=== PATIENT | female | born 1985 | race Two or more races ===

== ENCOUNTER 2020-03-06 05:25 | Inpatient (IN) | payer OTHER ==
--- NOTE | 2020-03-04 12:12 | NUR ---
[employer] Translation services used to obtained medical history with top executive Zayra ID# [id number].
[2020-03-06] VITALS (16 sets, daily range): BP systolic 105–138; BP diastolic 65–86
[~2020-03-06] VITALS: Ht 165.1 cm; Wt 81.6 kg
[2020-03-06] MEDS ORDERED: Rocuronium Bromide 50mg/5ml Inj IV ONE (06:36)
[2020-03-06] MEDS ORDERED: Meperidine 25mg/0.5ml Inj (FOR RIGORS ONLY) IV PRN (06:45)
[2020-03-06] MEDS ORDERED: LORazepam Inj 2mg/ml 1ml IV PRN (06:45)
[2020-03-06] MEDS ORDERED: HYDROcodone/Acetamin 7.5/325 tab ORAL PRN ×3 (06:45→07:45)
[2020-03-06] MEDS ORDERED: DiphenhydrAMINE 50mg/ml Inj IVP PRN (06:45)
[2020-03-06] MEDS ORDERED: LR 1000ml 1,000 ML IVLG SCH (06:45)
[2020-03-06] MEDS ORDERED: Ketorolac 30mg Inj IV PRN ×2 (06:45)
[2020-03-06] MEDS ORDERED: Atropine Sulfate 0.4mg/ml inj IVP PRN (06:45)
[2020-03-06] MEDS ORDERED: Midazolam 2mg/2ml Inj IVP PRN (06:45)
[2020-03-06] MEDS ORDERED: Hydromorphone 0.5mg/0.5ml inj IVP PRN (06:45)
[2020-03-06] MEDS ORDERED: Labetalol 5mg/ml 20ml vial IV PRN (06:45)
[2020-03-06] MEDS ORDERED: Acetaminophen (Non formulary) 100 ML IV ONE (06:45)
[2020-03-06] MEDS ORDERED: fentaNYL 100 mcg/2 mL IV PRN (06:45)
[2020-03-06] MEDS ORDERED: HYDROcodone/Acetamin 5/325 tab ORAL PRN ×2 (06:45→07:45)
[2020-03-06] MEDS ORDERED: oxyCODONE HCL/Acetaminophen 5/325mg ORAL PRN (06:45)
[2020-03-06] MEDS ORDERED: Metoclopramide 10mg/2ml Inj IVP PRN ×2 (06:45→07:45)
--- NOTE | 2020-03-06 06:47 | Anethesia Preoperative Eval ---
Anesthesia Pre-op PMH/ROS General Date of Evaluation: Mar 06, 2020 Time of Evaluation: 07:19 Anesthesiologist: Jerzy ASA Score: ASA 2 Mallampati Score Class I : Soft palate, uvula, fauces, pillars visible Class II: Soft palate, uvula, fauces visible Class III: Soft palate, base of uvula visible Class IV: Only hard plate visible Mallampati Classification: Class I Surgeon: Daysi Diagnosis: Neck Pain Surgical Procedure: ADR C5-6, ACDF C6-7 Anesthesia History: none Family History: no anesthesia problems Allergies: Coded Allergies: No Known Allergies (Unverified , 03/06/20) Medications: see eMAR Patient NPO?: Yes Past Medical History Other: obesity - BMI 31 PSxH Narrative: C/S X2 Anesthesia Pre-op Phys. Exam Physician Exam Vital Signs Date Time Temp Pulse Resp B/P (MAP) Pulse Ox O2 Delivery O2 Flow Rate FiO2 03/06/20 06:13 Room Air 03/06/20 07:38 97.4 75 20 138/69 (92) 96 Last Vital Signs Date Time Temp Pulse Resp B/P (MAP) Pulse Ox O2 Delivery O2 Flow Rate FiO2 03/06/20 06:13 Room Air Constitutional: NAD Neurologic: CN 2-12 intact Cardiovascular: RRR Respiratory: CTA Gastrointestinal: S/NT/ND Airway Exam Mallampati Score: Class I MO: full ROM: limited Teeth: intact Anesthesia Pre-op A/P Labs Urine Test Test 03/06/20 05:50 Urine HCG, Qualitative Negative (NEGATIVE) Risk Assessment & Plan Assessment: ASA 1 Plan: GA, SED,GlideScope Status Change Before Surgery: No Pre-Antibiotics Dru Grams Ancef IV Given Within 1 Hr of Incision: Yes Time Given: 08:01 Aram Bertrand MD Mar 06, 2020 06:47
[2020-03-06] MEDS ORDERED: Vancomycin 1gm vial IVPB ONE (06:57)
[2020-03-06] MEDS ORDERED: Thrombin 5000 units TOPIC ONE (06:58)
[2020-03-06] MEDS ORDERED: Gelfoam Size TOPIC ONE (06:58)
[2020-03-06] MEDS ORDERED: Bacitracin 50000 Units Vial ONE (06:58)
[2020-03-06] MEDS ORDERED: ceFAZolin sod 2 GM in NS 55 ML IVPB ONE (07:00)
[2020-03-06] MEDS ORDERED: propofoL 1,000mg/100ml IV ONE (07:00)
[2020-03-06] MEDS ORDERED: Sterile Water Irrig 1000ml IRRIG ONE (07:00)
[2020-03-06] MEDS ORDERED: Neostigmine 1mg/ml 10ml Inj ONE (07:00)
[2020-03-06] MEDS ORDERED: NS Irrig 1000ml ONE (07:00)
[2020-03-06] MEDS ORDERED: LR 1000ml ONE (07:00)
[2020-03-06] MEDS ORDERED: Lidocaine 1% MPF 10mg/ml 5ml ONE (07:04)
[2020-03-06] MEDS ORDERED: Sodium Chloride 10ml vial INJ ONE (07:04)
[2020-03-06] MEDS ORDERED: fentaNYL 100 mcg/2 mL IV ONE (07:05)
[2020-03-06] MEDS ORDERED: Lidocaine 1% Plain 30 ml INJ ONE (07:05)
[2020-03-06] MEDS ORDERED: Succinylcholine 20mg/ml 10ml vial ONE (07:21)
--- NOTE | 2020-03-06 07:29 | Pre-Procedure Note/Attestation ---
Pre-Procedure Note/Attestation Complete Prior to Procedure Planned Procedure: not applicable Procedure Narrative: Anterior cervical discectomy and fusion of C67 and artificial disc replacement of Cervical 56 Indications for Procedure Pre-Operative Diagnosis: herniation C56 67 Attestation I attest that I discussed the nature of the procedure; its benefits; risks and complications; and alternatives (and the risks and benefits of such alternatives ), prior to the procedure, with the patient (or the patient's legal petroleum products sales representative). I attest that, if there was a reasonable possibility of needing a blood transfusion, the patient (or the patient's legal petroleum products sales representative) was given the [facility] standardized written summary, pursuant to the [place] Blood Safety Act ([place] Health and Safety Code # 1645, as amended). I attest that I re-evaluated the patient just prior to the surgery and that there has been no change in the patient's H&P, except as documented below: Chester Tavarez MD Mar 06, 2020 07:29
--- NOTE | 2020-03-06 07:32 | Brief Operative Note ---
Immediate Post Operative Note Operative Note Chief Complaint: neck pain and radiculopathy Pre-op Diagnosis: herniation C56 67 Procedure: Anterior cervical discectomy and fusion of C67 and artificial disc replacement of Cervical 56 Post-op Diagnosis: same as pre-op Findings: consistent w/pre-op dx studies Surgeon: Daysi Business Transformation Consultant: Jennifer Anesthesiologist: Jerzy Anesthesia: general Specimen: none Complications: none Condition: stable Fluids: IVF Estimated Blood Loss: minimal Drains: none Implant(s) used?: Yes - prodisc c sz 5, nuvasive cervical sz 6 screws 12x3 Chester Tavarez MD Mar 06, 2020 07:32
[2020-03-06] MEDS ORDERED: Naloxone 0.4mg/ml Inj IVP PRN (07:45)
[2020-03-06] MEDS ORDERED: Chloraseptic Spray 20mL Bottle ORAL PRN (07:45)
[2020-03-06] MEDS ORDERED: Morphine Sulfate 4mg/ml Inj (IV USE ONLY) IV PRN ×2 (07:45)
[2020-03-06] MEDS ORDERED: Morphine Sulfate 2mg/ml Inj(IV/IM USE ONLY) IV PRN (07:45)
[2020-03-06] MEDS ORDERED: Milk of Magnesia 30ml Ud ORAL PRN (07:45)
[2020-03-06] MEDS ORDERED: HYDROmorphone 1mg/ml Carpuject IVP PRN (07:45)
[2020-03-06] MEDS ORDERED: Glycopyrrolate 0.2mg/ml 1ml Vial ONE (09:10)
--- NOTE | 2020-03-06 09:36 | Immediate Post-Op Evaluation ---
Immediate Post-Op Evalulation Immediate Post-Op Evalulation Procedure: ADR C5-6, ACDF C6-7 Date of Evaluation: Mar 06, 2020 Time of Evaluation: 10:37 IV Fluids: 1000 LR Blood Products: 0 Estimated Blood Loss: 50 Urinary Output: 250 Blood Pressure Systolic: 109 Blood Pressure Diastolic: 68 Pulse Rate: 75 Respiratory Rate: 16 O2 Sat by Pulse Oximetry: 100 Temperature (Fahrenheit): 97 Pain Score (1-10): 2 Nausea: No Vomiting: No Complications 0 Patient Status: awake, reacts, patent, extubated, none Hydration Status: adequate Dru Grams Ancef IV Given Within 1 Hr of Incision: Yes Time Given: 08:01 Aram Bertrand MD Mar 06, 2020 09:36
--- NOTE | 2020-03-06 12:47 | NUR ---
NURSE NOTES: Patient received from PACU from Renae Madison RN at 1150 s/p ADR C5-6, ACDF C6-7, groggy but arousable d/t anesthesia, no shortness of breath, IV line on left hand patent and intact, dermabond dressing dry and intact on cervical area, on 02 via NC at 3 lpm, on cervical soft easy chew diet, belongings checked with OR/transferring nurse, patient prefers to keep belongings (money included) at bedside (translated by nephew) explained risk and benefits, RX of Missy given to Rajeev (nephew), patient stable at this time. Initial VS: 122/80 RR 18 HR 75 02 100%, will continue to monitor and proceed with plan of care, call light within reach.
[2020-03-06] MEDS: NS w/KCl 20mEq 1000ml 1,000 ML IV SCH ×2 (13:13→23:19)
--- NOTE | 2020-03-06 15:43 | Diagnostic Imaging Report ---
Indication: Reason For Exam: PAIN Technique: Intraoperative fluoroscopy with 5 fluoroscopy stored images obtained by Dr. Tavarez. Total dose: 6.87mGy, Fluoro time 45.7s Comparison: None. Findings: Intraoperative fluoroscopy demonstrates anterior cervical discectomy and fusion at the C5-C6 level. IMPRESSION: Intraoperative fluoroscopy of anterior cervical discectomy and fusion. Please refer to formal operative report for more detail.
[2020-03-06] MEDS: ceFAZolin sod 1 GM in D5W 55 ML IV SCH ×2 (16:15→23:19)
--- NOTE | 2020-03-06 16:18 | NUR ---
CASE MANAGEMENT: INITIAL REVIEW 34YR OLD FEMALE HERE FOR SCHEDULE SURGERY CC:NECK PAIN SI:NECK PAIN AND RADICULOPATHY 97.4 75 20 138/69 96% ON RA IS:ON SURGERY NOW ANTERIOR CERVICAL DISCECTOMY AND FUSION OF C67 AND ARTIFICIAL DISC REPLACEMENT OF CERVICAL 56 \: 3E MED SURG UNIT DCP:HOME WHEN STABLE PLAN: X-RAY C SPINE NEURO CHECKS ENCOURAGE INCENTIVE SPIROMETER
[2020-03-06] MEDS: Docusate 100mg cap ORAL SCH (17:19)
--- NOTE | 2020-03-06 19:34 | NUR ---
NURSE NOTES: Received report from Linda. AAO x 4, on NC 3L. Ethiopian speaking. Denies pain and Dermabond on the neck. IV site intact and running IVF. I/S at bedside and instruction given. SCD on and ambulatory with quality assistant. No acute distress noted. Bed locked, lowest position, alarm on, side rails up, call light within reach. Will continue to monitor.
--- NOTE | 2020-03-06 19:42 | NUR ---
NURSE HAND-OFF: Important Events on Shift:[s/p ADR C5-6, ACDF C6-7] Patient Status: [stable] Diet: [Soft easy chew, post op cervcial diet] Pending Orders: [none] Pending Results/Labs:[none] Pending MD notification:[none] Latest Vital Signs: Temperature 98.2 , Pulse 89 , B/P 110 /70 , Respiratory Rate 20 , O2 SAT 100 , Nasal Cannula, O2 Flow Rate 3 . Vital Sign Comment: [] Latest De [place] Santos Fall Score: 55 Fall Risk: High Risk Safety Measures: Call light , Bed Alarm , Side Rails Side Rails x1, Bed position . Fall Precautions: Report given to [ÁLVARO Singh].
[2020-03-07] VITALS: BP 112/68
[2020-03-07 04:00] VITALS: BP 114/75
--- NOTE | 2020-03-07 07:32 | NUR ---
NURSE HAND-OFF: Important Events on Shift:[s/p anterior cervical discectomy, pain] Patient Status: [stable] Diet: [Soft easy chew, post op cervcial diet] Pending Orders: [N] Pending Results/Labs:[N] Pending MD notification:[N] Latest Vital Signs: Temperature 98.6 , Pulse 87 , B/P 114 /75 , Respiratory Rate 18 , O2 SAT 98 , Room Air, O2 Flow Rate 3 . Vital Sign Comment: Latest De [place] Fall Score: 35 Fall Risk: Medium Risk Safety Measures: Call light Within Reach, Bed Alarm Zone 1, Side Rails Side Rails x2, Bed position Low and Locked. Fall Precautions: Yellow Socks Patient Fall Education Report given to [Elif].
--- NOTE | 2020-03-07 07:53 | General Progress Note ---
Assessment/Plan Assessment/Plan: neck pain and radiculopathy herniation C56 67 Anterior cervical discectomy and fusion of C67 and artificial disc replacement of Cervical 56 PLAN 1. incentive spirometry 2. SCD 3. PT evaluation and therapy 4. Hydration 5. Pain management 6. discharge pending surgical clearance Subjective Allergies: Coded Allergies: No Known Allergies (Unverified , 03/06/20) Subjective stable postop Objective Last 24 Hour Vital Signs Date Time Temp Pulse Resp B/P (MAP) Pulse Ox O2 Delivery O2 Flow Rate FiO2 03/07/20 04:00 98.6 87 18 114/75 (88) 98 03/07/20 00:00 98.6 88 18 112/68 (83) 99 03/06/20 21:00 Room Air 03/06/20 20:09 99.6 92 18 107/67 (80) 100 03/06/20 16:00 98.2 89 20 110/70 (83) 100 03/06/20 13:30 97.9 85 20 126/80 (95) 100 03/06/20 13:00 97.4 84 20 128/86 (100) 100 03/06/20 12:30 97.4 84 20 128/86 (100) 100 03/06/20 12:15 97.3 75 18 122/80 (94) 100 03/06/20 11:45 97.2 72 15 129/80 100 Nasal Cannula 3 03/06/20 11:30 71 15 128/82 100 Nasal Cannula 3 03/06/20 11:27 97.2 03/06/20 11:15 68 14 120/74 100 Nasal Cannula 3 03/06/20 11:05 73 14 118/71 100 Nasal Cannula 3 03/06/20 10:50 75 16 119/73 100 Nasal Cannula 3 03/06/20 10:40 70 17 114/73 100 Simple Mask 6 03/06/20 10:30 71 16 113/69 100 Simple Mask 6 03/06/20 10:25 73 15 105/65 100 Simple Mask 6 03/06/20 10:25 75 16 100 03/06/20 10:20 97.5 74 19 109/69 100 Simple Mask 6 Intake and Output 03/06/20 03/07/20 19:00 07:00 Intake Total 1600 ml 900 ml Output Total 300 ml Balance 1300 ml 900 ml Intake IV Total 1600 ml 900 ml Output Urine Total 250 ml Estimated Blood Loss 50 ml # Voids 2 Height (Feet): 5 Height (Inches): 5.00 Weight (Pounds): 180 Objective WDWN NAD clear breath sounds bilaterally without rhonchi or wheeze [id number] without MRG NABS nontender no HSM no CCE nonfocal Fareed Azevedo MD Mar 07, 2020 07:53
--- NOTE | 2020-03-07 07:53 | General Progress Note ---
Assessment/Plan Assessment/Plan: neck pain and radiculopathy herniation C56 67 Anterior cervical discectomy and fusion of C67 and artificial disc replacement of Cervical 56 PLAN 1. incentive spirometry 2. SCD 3. PT evaluation and therapy 4. Hydration 5. Pain management 6. discharge once stable with outpatient follow up Subjective Date patient seen: Mar 06, 2020 Time patient seen: 17:00 Allergies: Coded Allergies: No Known Allergies (Unverified , 03/06/20) Subjective seen postop Objective Last 24 Hour Vital Signs Date Time Temp Pulse Resp B/P (MAP) Pulse Ox O2 Delivery O2 Flow Rate FiO2 03/06/20 16:00 98.2 89 20 110/70 (83) 100 03/06/20 13:30 97.9 85 20 126/80 (95) 100 03/06/20 13:00 97.4 84 20 128/86 (100) 100 03/06/20 12:30 97.4 84 20 128/86 (100) 100 03/06/20 12:15 97.3 75 18 122/80 (94) 100 03/06/20 11:45 97.2 72 15 129/80 100 Nasal Cannula 3 03/06/20 11:30 71 15 128/82 100 Nasal Cannula 3 03/06/20 11:27 97.2 03/06/20 11:15 68 14 120/74 100 Nasal Cannula 3 03/06/20 11:05 73 14 118/71 100 Nasal Cannula 3 03/06/20 10:50 75 16 119/73 100 Nasal Cannula 3 03/06/20 10:40 70 17 114/73 100 Simple Mask 6 03/06/20 10:30 71 16 113/69 100 Simple Mask 6 03/06/20 10:25 73 15 105/65 100 Simple Mask 6 03/06/20 10:25 75 16 100 03/06/20 10:20 97.5 74 19 109/69 100 Simple Mask 6 Intake and Output Height (Feet): 5 Height (Inches): 5.00 Weight (Pounds): 180 Objective WDWN NAD clear breath sounds bilaterally without rhonchi or wheeze [id number] without MRG NABS nontender no HSM no CCE nonfocal Fareed Azevedo MD Mar 07, 2020 07:53
[2020-03-07 08:00] VITALS: BP 112/73
[2020-03-07] MEDS: ceFAZolin sod 1 GM in D5W 55 ML IV SCH (08:19)
[2020-03-07] MEDS: Docusate 100mg cap ORAL SCH (08:20)
--- NOTE | 2020-03-07 08:20 | NUR ---
NURSE NOTES: Patient awake and alert and oriented,respirations unlabored. anterior neck surgical incision intact with Dermabond dressing in place. Patient medicated for complaint of surgical pain.Will monitor.Call light within reach.
--- NOTE | 2020-03-07 08:39 | 48 Hour Post Anesthesia Eval ---
Post Anesthesia Evaluation Procedure: ADR C5-6, ACDF C6-7 Date of Evaluation: Mar 07, 2020 Time of Evaluation: 08:38 Blood Pressure Systolic: 128 0: 76 Pulse Rate: 68 Respiratory Rate: 20 Temperature (Fahrenheit): 97.6 O2 Sat by Pulse Oximetry: 98 Airway: patent Nausea: No Vomiting: No Pain Intensity: 3 Hydration Status: adequate Cardiopulmonary Status: stable Mental Status/LOC: patient returned to baseline Follow-up Care/Observations: n/a Post-Anesthesia Complications: none Follow-up care needed: ready to discharge Beto Ricks MD Mar 07, 2020 08:39
--- NOTE | 2020-03-07 08:46 | NUR ---
NURSE NOTES: Seen and evaluated by and cleared to discharge today. Order noted and carried out.
[2020-03-07] MEDS ORDERED: NORCO 10-325 T1 EACH ORAL (09:25)
--- NOTE | 2020-03-07 09:32 | NUR ---
NURSE NOTES: Spoke to regarding discharge and ok to discharge today. Order noted and carried out.
[2020-03-07] MEDS: NS w/KCl 20mEq 1000ml 1,000 ML IV SCH (10:00)
--- NOTE | 2020-03-07 11:36 | NUR ---
PT Note PT susan completed, tx initiated. Patient was instructed on proper neck care and on proper log rolling techniques. Patient was able to demonstrate understanding of instructions through return demo. Addendum: 03/07/20 at 1138 by EUN SWENSON PT Amended: Links added.
--- NOTE | 2020-03-07 11:37 | NUR ---
NURSE NOTES: Patient temperature at this time 100.8,notified DR Tavarez,DR Tavarez state to hold discharge until this afternoon and to give patient Tylenol for temperature and have patient use I/S and to notify DR Azevedo.
[2020-03-07 11:50] VITALS: BP 112/73
[2020-03-07 11:51] VITALS: BP 110/63
--- NOTE | 2020-03-07 12:30 | Operative Note - Dictated ---
DATE OF OPERATION: 03/06/2020 SURGEON: Chester Tavarez MD, Orthopaedic Spine Surgeon. TITLE CLOSER: TIERRA Isaacs. PREOPERATIVE DIAGNOSES: 1. Intractable neck pain. 2. Radiculopathy. 3. Herniation, C5-C6 and C6-C7. 4. Neural foraminal stenosis, C5-C6 and C6-C7. 5. Stenosis. POSTOPERATIVE DIAGNOSES: 1. Intractable neck pain. 2. Radiculopathy. 3. Herniation, C5-C6 and C6-C7. 4. Neural foraminal stenosis, C5-C6 and C6-C7. 5. Stenosis. PROCEDURE PERFORMED: 1. Anterior cervical discectomy and artificial disc replacement of C5-C6 using a Synthes ProDisc C size 5. 2. Anterior cervical discectomy and fusion of C6-C7 using NuVasive Interlock C size 6 PEEK cage and screws 13 mm x3 and there was also 1 mL of Osteocel allograft. 3. Use of intraoperative microscope. 4. Motor-evoked potential monitoring. 5. Somatosensory-evoked potential monitoring. 6. Supervision and interpretation of fluoroscopy. COMPLICATIONS: None. ANESTHESIA: General. ESTIMATED BLOOD LOSS: Less than 100 mL. INDICATIONS FOR SURGERY: This patient is a 34-year-old female, who has a history of diagnoses as listed above. As of result of this, the patient sustained intractable neck pain, radiculopathy, herniation of C5-C6 and C6-C7, neural foraminal stenosis of C5-C6 and C6-C7, and stenosis. We tried a course of conservative management, but despite this course, there was still a significant component of persistent, recalcitrant neck pain and arm pain. The MRI demonstrated significant neural foraminal compromise secondary to disc herniations at C5-C6 and C6-C7. We had a long discussion with Cecilia regarding the risks and benefits of surgery. Our discussion included but was not limited to nonoperative management, chiropractic management, another epidural steroid injection as well as definitive management in the form of surgery. We recommended an artificial disc replacement of cervical C5-C6 and anterior cervical discectomy and fusion of cervical C6-C7 as final definitive management. We reviewed the risks and benefits of surgery with the patient. Our discussion included a comprehensive review of the clinical issues and the nature of the clinical decision. We reviewed the alternatives, including doing nothing. The patient elected to proceed accordingly with an artificial disc replacement of cervical C5-C6 and anterior cervical discectomy and fusion of cervical C6-C7. We had a long discussion regarding the risks, alternatives, and benefits of surgery. Our description of the risks included a discussion in person as well as a signed consent, which detailed all pertinent risks from the procedure itself. Briefly, our discussion included but was not limited to infection, bleeding, pseudarthrosis, spinal cord injury, neurovascular injury, dural tear, CSF leak, neuropathy, paralysis, permanent weakness/drop foot/drop arm, paresthesias, blindness, palsy, and weakness. The patient understood there may be a need for a revision surgery or additional procedures. Approach-related complications including dysphonia, dysphagia, blindness, permanent vocal cord and neural injury, hematoma, swallowing and breathing difficulty. Medical complications were reviewed including liver, kidney, shock, cardiopulmonary failure, anesthesia complications including , swelling, damage to the musculature, larynx/voice injury or loss, esophagus/throat, trachea, blood vessels and muscles/muscular sprain and lungs/pneumothorax during this surgical procedure; injury to deeper structures may be temporary or permanent. After this review of risks, the patient understood these and elected to proceed. A written and verbal consent was given. We discussed the pros and cons of all the alternatives. We discussed the uncertainties associated with the decision. Afterwards, I assessed the patient's understanding and explored their preferences. All questions were answered and no guarantees were given. Medical clearance was obtained prior to surgery. INTRAOPERATIVE FINDINGS: C5-C6; at C5-C6, there were no osteophytes noted. The disc itself was soft and spongy. It was not crumbled or dehydrated whatsoever. There was noted to be a tear in the posterior longitudinal ligament. This tear was found to be right-sided approximately 10 degrees cephalad to caudad. Through this tear, I noted a large fragment of herniated nuclear tissue. This nuclear tissue was probed with a Microsect 1-B curette, which led to a larger disc herniation, which was encroaching on the neural foramina predominantly on the right side. This was resected with a combination of Kerrison 1 and Kerrison 2 rongeurs. C6-C7; the disc at C6-C7 was soft and spongy. It was not desiccated, dehydrated, or crumbled in any form. The outer portion of the disc was resected until the posterior longitudinal ligament was encountered where there was a tear noted in the right side of the PLL approximately 10 to 15 degrees cephalad to caudad. This was probed with a Microsect 1-B and 2-B curette as I noted the posterior limb of the nuclear fragments in the midst of the tear. This was freed and ultimately resected with a combination of Kerrison 1 and 2 rongeurs until the entire neural foramina was decompressed. There was severe pressure right-sided more than left-sided. I did note that herniation seemed larger in size and I expected based on the MRI findings, the herniation was also causing more severe encroachments and appreciated initially on the MRI, which was not what was expected, but what we encountered during surgery. Perhaps, the herniation had grown in size. DESCRIPTION OF PROCEDURE: Under the benefit of general endotracheal anesthesia and with the assistance of the entire operative team, the patient was moved from the rney onto the operative table in the supine position. The head was secured and carefully positioned appropriately. Bilateral arms were secured with Gel Pads and foam and all bony prominences were padded. For the bilateral lower extremities, SCD and MISHEL hose were placed for DVT prophylaxis. A surgical timeout was called, which corroborated our planned procedure of artificial disc replacement of an artificial disc replacement of cervical C5-C6, and anterior cervical discectomy and fusion of cervical C6-C7. Preoperative antibiotics were administered within 30 minutes of the incision for antibiotic prophylaxis. Using lateral fluoroscopic radiography, the operative levels were delineated. Next, the wound was prepped and draped with chlorhexidine and sterile drapes. An incision was based on lateral fluoroscopy and we centered our incision at the C5-C6 and C6-C7 interspace and next, using a standard Pabon-Padilla anterior-based approach, the incision was taken down through the skin and subcutaneous tissues until the vertebral bodies and their corresponding disc spaces were visualized. A needle was placed into the interspace to confirm placement of the operative interspace and we performed the remainder of procedure under microscopic visualization. Next, using bipolar and Bovie cautery to ensure meticulous hemostasis, the longus colli was mobilized bilaterally and retractors were placed deep to the longus colli bilaterally to address retraction. Next, we turned our attention to the radical anterior discectomy. This was initially performed at C5-C6 first by using a 15 blade scalpel followed by narrow pituitaries and a Microsect 5-B curette was used to denude the endplate of all cartilaginous tissue. Next, using a [employer] Alphonso AM8 drill bit, the vertebral endplates were denuded of all residual cartilage in a nnxa-ux-wgee and hrmpd-lt-egqfl fashion, and ultimately the posterior uncinate joints bilaterally and posterior osteophytic lips and margins were carefully denuded until clear visualization of the posterior longitudinal ligament was possible. An endplate preparation was performed in the exact same fashion using an intervertebral kitchen and counter worker, sequential distraction was obtained throughout the disc space. We saw a tear/rent in the PLL and this was carefully mobilized and dissected using a Microsect 1-B curette until we visualized a discrete disc herniation with compression of the spinal cord as well as neural foramina, which was right-sided more than left-sided. This neural foraminal compression was carefully resected using a Kerrison-1 and Kerrison-2 rongeurs until complete decompression of the spinal cord was visualized and complete decompression of the neural foramina and nerve root therein as well as the axilla and lateral margin of the nerve root was visualized and subsequently completely decompressed. The family was notified at one-hour intervals throughout the procedure to provide for consistent updates. We next turned our attention towards trialing our implant within the disc space. We initially tried size 5 and this ProDisc Cervical spacer fit well in regard to depth and width. This implant was opened and prepared. Next, under direct visualization, I confirmed excellent fit in respect to the anterior and posterior vertebral bodies, the uncinate joints and in regard to toggle. Once satisfied with this placement on serial AP and lateral fluoroscopy, I turned my attention towards cutting our leatha. These were cut in the bones using a reciprocating drill and afterwards all free fragments of bone were irrigated. Next, FloSeal was placed into the interspace, then removed in its entirety, and the implant was inserted using fluoroscopic guidance. Next, the Synthes ProDisc C size 5 ADR was then carefully advanced and secured into the intervertebral space under direct visualization and with supervision of AP and lateral fluoroscopic views. I next turned my attention towards the radical anterior discectomy. This was then performed at cervical C6-C7 first by using a 15 blade scalpel followed by narrow pituitaries and a Microsect 5-B curette was used to denude the endplate of all cartilaginous tissue. Next, using a [employer] Alphon[employer] AM8 drill bit, the vertebral endplates were denuded of all cartilaginous tissue in a pzln-mu-vexz and qqonz-ee-jzozk fashion, and ultimately the posterior uncinate joints bilaterally and posterior osteophytic lips and margins were carefully denuded until wide and thorough visualization of the posterior longitudinal ligament was possible. At this level, the endplate preparation was performed in the exact same fashion using an intervertebral kitchen and counter worker, sequential distraction was obtained throughout the disc space. We saw a tear/rent in the PLL and this was carefully mobilized and dissected using a Microsect 1-B curette until we visualized an obvious disc herniation with compression of the spinal cord as well as neural foramina, which was right-sided more than left-sided. This neural foraminal compression was carefully resected using a Kerrison-1 and Kerrison-2 rongeurs until complete decompression of the spinal cord was visualized and complete decompression of the neural foramina and nerve root therein as well as the axilla and lateral margin of the nerve root was visualized and subsequently completely decompressed. We next turned our attention towards trialing our implant within the disc space. We initially tried size 5 and afterwards size 6 trial from the NuVasive Interlock system at each level, which appeared to be appropriate under AP and lateral fluoroscopy as well as in terms of its height, depth, width, and lack of toggle. The PEEK (polyetheretherketone) interbody cages were then both packed with allograft bone from Osteocel and local autograft bone matrix. Next, these were then carefully advanced and secured into their intervertebral spaces under direct visualization and with supervision of AP and lateral fluoroscopic views. We next turned our attention towards plating. Plating was performed at each level with the NuVasive Interlock-C plating system. A total of three screws of size 13 mm in length were inserted and confirmed under AP and lateral fluoroscopy and confirmed to be in excellent position. After a finger sweep, we confirmed removal of all sponges. The retractor was removed and we next turned our attention to meticulous hemostasis with FloSeal and bipolar cautery. After the sponge and needle count was again found to be correct with our second count, we next turned our attention to closure. The wound was again copiously irrigated with antibiotic-impregnated saline. Closure consisted of 4-0 clear nylon for the platysma, and 5-0 clear nylon for the superficial skin. Final skin closure and dressings consisted of Dermabond. Prior to final closure, a final radiograph was obtained, which demonstrated the hardware was intact with excellent position throughout. The patient tolerated the procedure well. The patient was carefully extubated after the conclusion of surgery. We discussed the findings of the surgery with the family upon completion of the case. At this point, the patient was transferred to the spine floor for further observation. Chester Tavarez M.D. DR: ALEJANDRA JOB#: [id number] CC:
--- NOTE | 2020-03-07 14:44 | Discharge Summary ---
DATE OF ADMISSION: 03/06/2020 DATE OF DISCHARGE: 03/07/2020 PROCEDURE PERFORMED DURING ADMISSION: C5-C6 artificial disc replacement. C6-C7 ACDF. REASON FOR ADMISSION: Cervical herniation C5-C6 and C6-C7. HOSPITAL COURSE/TREATMENT RENDERED: DISCHARGE PHYSICAL EXAMINATION: 1. The patient was ambulating with and without the assistance of physical therapy. 2. Prior to discharge home incision was clean and dry with minimal swelling. 3. Follows commands. 4. Alert and oriented. 5. Noonan discontinued, voiding. 6. Incentive spirometer at bedside. 7. IVF hep-locked. MOTOR: Demonstrates expected postoperative bulk and tone. Moves biceps, triceps, and deltoid musculature on command. Moves hip flexors, quadriceps, tibialis anterior, EHL, gastrocsoleus musculature on command as well. TREATMENT RENDERED: 1. Daily nursing care. 2. Physical therapy. 3. Occupational therapy. 4. Intravenous medications. 5. Oral medications. 6. Daily postoperative examinations by Spine surgery team. CONDITION OF PATIENT ON DISCHARGE: The condition on discharge is stable for discharge to home. DISCHARGE INSTRUCTIONS: Our specific instructions relating to physical activity, medications, diet and followup care are detailed in our standard operative folder and were given to this patient prior to surgery. We will however summarize these briefly as stated below. Regarding physical activity, we would like the patient to limit her flexion, extension and rotation. We also require a limitation on her bending, lifting and twisting. All medication has been called in prior to surgery to her pharmacy of choice. She can resume her regular diet once tolerated. We would like her to shower and limit soaking the wound in a tub/Jacuzzi/the ocean for a period of one month or until the incision is completely healed. We will have her follow up in our office in three weeks' time for her regularly scheduled appointment. She understand to call our office tomorrow to schedule the time for her three-week followup appointment. The patient will notify us should they experience any increase in the severity of pain, redness, swelling, or drainage from her incision. Chester Tavarez M.D. DR: VALERIA/NINFA JOB#: [id number] CC:
--- NOTE | 2020-03-07 16:00 | NUR ---
DR Tavarez and DR Azevedo updated on patient temperature now at 99.2 oral ,both Dr in agreement that patient can be discharge to home.Instruct patient to continue to use Incentive Spirometer.Discharge instructions given using [employer] interpeter.IV was removed and ID hospital band was removed by charge Nurse Zander.Patient has CD and Xrays.Patient prescription at home.
--- NOTE | 2020-03-07 16:10 | NUR ---
NURSE NOTES: Patient discharged with family member in stable condition. Discharge instruction given by primary nurse. IV and ID removed. Instructed to follow up with MD and verbalized understanding. Brought down to private car by wheelchair.
== END 2020-03-07 16:10 | disposition home or self-care (01) | DRG 473 ==
LOC: SDSOVERFLO 05:25 → 3E 12:03
DX: M50.122 Cervical disc disorder at C5-C6 level with radiculopathy (principal); M48.02 Spinal stenosis, cervical region
CPT/HCPCS: 36415; 72040; 76000; 81025; 86850; 86900; 86901; 87081; 94003; 94150; J2405; J2710; U0002

== ENCOUNTER 2020-07-29 05:17 | Inpatient (IN) | payer OTHER ==
[2020-07-29] VITALS (19 sets, daily range): BP systolic 100–124; BP diastolic 49–85
[~2020-07-29] VITALS: Ht 165.1 cm; Wt 81.6 kg
[~2020-07-29 05:17] MED LIST: NORCO 10-325 T1 EACH ORAL
[2020-07-29] MEDS ORDERED: Midazolam 2mg/2ml Inj ONE (06:32)
[2020-07-29] MEDS ORDERED: fentaNYL 100 mcg/2 mL IV ONE (06:32)
[2020-07-29] MEDS ORDERED: Lidocaine 1% MPF 10mg/ml 5ml ONE (06:33)
[2020-07-29] MEDS ORDERED: Vancomycin 1gm vial IVPB ONE (06:33)
[2020-07-29] MEDS ORDERED: Gelfoam Size TOPIC ONE (06:34)
[2020-07-29] MEDS ORDERED: Thrombin 5000 units TOPIC ONE (06:34)
[2020-07-29] MEDS ORDERED: Ropivacaine 5mg/ml Vial 30ml INJ ONE ×2 (06:34→07:02)
[2020-07-29] MEDS ORDERED: Succinylcholine 20mg/ml 10ml vial ONE (06:35)
[2020-07-29] MEDS ORDERED: Bacitracin 50000 Units Vial ONE (06:35)
[2020-07-29] MEDS ORDERED: Rocuronium Bromide 50mg/5ml Inj IV ONE (06:35)
[2020-07-29] MEDS ORDERED: propofoL 1,000mg/100ml IV ONE (07:00)
[2020-07-29] MEDS ORDERED: ceFAZolin sod 2 GM in NS 55 ML IVPB ONE (07:00)
--- NOTE | 2020-07-29 07:18 | Pre-Procedure Note/Attestation ---
Pre-Procedure Note/Attestation Complete Prior to Procedure Planned Procedure: right Procedure Narrative: Right sided Lumbar 45, 5S1 hemilaminotomy foraminotomy microdiscectomy Indications for Procedure Pre-Operative Diagnosis: L45 and L5S1 herniation Attestation I attest that I discussed the nature of the procedure; its benefits; risks and complications; and alternatives (and the risks and benefits of such alternatives), prior to the procedure, with the patient (or the patient's legal manufacturing sales representative). I attest that, if there was a reasonable possibility of needing a blood transfusion, the patient (or the patient's legal manufacturing sales representative) was given the [facility] standardized written summary, pursuant to the [place] Blood Safety Act ([place] Health and Safety Code # 1645, as amended). I attest that I re-evaluated the patient just prior to the surgery and that there has been no change in the patient's H&P, except as documented below: Chester Tavarez MD Jul 29, 2020 07:18
--- NOTE | 2020-07-29 07:19 | Brief Operative Note ---
Immediate Post Operative Note Operative Note Chief Complaint: back pain and right leg radiculopathy Pre-op Diagnosis: L45 and L5S1 herniation Procedure: Right sided Lumbar 45, 5S1 hemilaminotomy foraminotomy microdiscectomy Post-op Diagnosis: same as pre-op Findings: consistent w/pre-op dx studies Surgeon: Daysi Manufacturing Maintenance Manager: Jennifer Anesthesiologist: SISI Anesthesia: general Specimen: none Complications: none Condition: stable Fluids: IVF Estimated Blood Loss: minimal Drains: none Implant(s) used?: No Chester Tavarez MD Jul 29, 2020 07:19
[2020-07-29] MEDS ORDERED: HYDROcodone/Acetamin 7.5/325 tab ORAL PRN ×2 (07:30)
[2020-07-29] MEDS ORDERED: HYDROmorphone 1mg/ml Carpuject IVP PRN (07:30)
[2020-07-29] MEDS ORDERED: Metoclopramide 10mg/2ml Inj IVP PRN ×2 (07:30→08:30)
[2020-07-29] MEDS ORDERED: Morphine Sulfate 4mg/ml Inj (IV USE ONLY) IV PRN ×2 (07:30)
[2020-07-29] MEDS ORDERED: Chloraseptic Spray 20mL Bottle ORAL PRN (07:30)
[2020-07-29] MEDS ORDERED: Naloxone 0.4mg/ml Inj IVP PRN (07:30)
[2020-07-29] MEDS ORDERED: Morphine Sulfate 2mg/ml Inj(IV/IM USE ONLY) IV PRN (07:30)
[2020-07-29] MEDS ORDERED: HYDROcodone/Acetamin 5/325 tab ORAL PRN (07:30)
[2020-07-29] MEDS ORDERED: Milk of Magnesia 30ml Ud ORAL PRN (07:30)
[2020-07-29] MEDS ORDERED: Morphine Sulfate 10mg/ml Inj ONE (08:06)
[2020-07-29] MEDS ORDERED: Glycopyrrolate 0.2mg/ml 1ml Vial ONE (08:08)
[2020-07-29] MEDS ORDERED: Ketorolac 30mg Inj ONE (08:08)
[2020-07-29] MEDS ORDERED: Sodium Chloride 10ml vial INJ ONE (08:08)
--- NOTE | 2020-07-29 08:19 | Anethesia Preoperative Eval ---
Anesthesia Pre-op PMH/ROS General Date of Evaluation: Jul 29, 2020 Time of Evaluation: 06:55 Anesthesiologist: Rambo ASA Score: ASA 2 Mallampati Score Class I : Soft palate, uvula, fauces, pillars visible Class II: Soft palate, uvula, fauces visible Class III: Soft palate, base of uvula visible Class IV: Only hard plate visible Mallampati Classification: Class II Surgeon: Daysi Diagnosis: Lumbar radiculopathy Surgical Procedure: Lumbar laminotomy Anesthesia History: none Family History: no anesthesia problems Allergies: Coded Allergies: No Known Allergies (Unverified , 07/29/20) Medications: see eMAR Patient NPO?: Yes Past Medical History Cardiovascular: Denies: HTN, CAD, CT, valve dz, arrhythmia, other Pulmonary: Denies: asthma, COPD, ALEJANDRO, other Gastrointestinal/Genitourinary: Reports: GERD; Denies: CRI, ESRD, other Neurologic/Psychiatric: Reports: other - chrnic pain; Denies: dementia, CVA, depression/anxiety, TIA Endocrine: Denies: DM, hypothyroidism, steroids, other HEENT: Denies: cataract (L), cataract (R), glaucoma, CHALKYITSIK (L), CHALKYITSIK (R), other Hematology/Immune: Denies: anemia, DVT, bleeding disorder, other Musculoskeletal/Integumentary: Denies: OA, RA, DJD, DDD, edema, other Other: obesity PMH Narrative: as above PSxH Narrative: x2 ACDF Anesthesia Pre-op Phys. Exam Physician Exam Last Vital Signs Date Time Temp Pulse Resp B/P (MAP) Pulse Ox O2 Delivery O2 Flow Rate FiO2 07/29/20 05:59 Room Air 07/29/20 05:44 97.5 81 18 109/74 (86) 99 Constitutional: NAD Neurologic: CN 2-12 intact Cardiovascular: RRR, no M/R/G Respiratory: CTA Gastrointestinal: other - obesity Airway Exam Mallampati Score: Class II MO: limited Neck: stiff ROM: limited Teeth: intact Dentures: no upper, no lower Anesthesia Pre-op A/P Labs see chart Urine Test Test 07/29/20 05:30 Urine HCG, Qualitative Negative (NEGATIVE) Studies Pre-op Studies: EKG - NSR Risk Assessment & Plan Assessment: ASA 2 Plan: GA with ET prone position neuromonitoring Status Change Before Surgery: No Pre-Antibiotics Drug: Ancef 2gr. Given Within 1 Hr of Incision: Yes Time Given: 07:42 Beto Ricks MD Jul 29, 2020 08:19
[2020-07-29] MEDS ORDERED: Hydromorphone 0.5mg/0.5ml inj IVP PRN (08:30)
[2020-07-29] MEDS ORDERED: Meperidine 25mg/1ml Inj (FOR RIGORS ONLY) IV PRN (08:30)
[2020-07-29] MEDS ORDERED: Ketorolac 30mg Inj IV PRN (08:30)
[2020-07-29] MEDS ORDERED: Acetaminophen (Non formulary) 100 ML IV ONE (08:30)
[2020-07-29] MEDS ORDERED: Midazolam 2mg/2ml Inj IVP PRN (08:30)
[2020-07-29] MEDS ORDERED: DiphenhydrAMINE 50mg/ml Inj IVP PRN (08:30)
[2020-07-29] MEDS ORDERED: LR 1000ml 1,000 ML IVLG SCH (08:30)
--- NOTE | 2020-07-29 09:47 | Immediate Post-Op Evaluation ---
Immediate Post-Op Evalulation Immediate Post-Op Evalulation Procedure: L4-L5, L5-S1 laminotomy with decompression Date of Evaluation: Jul 29, 2020 Time of Evaluation: 09:46 IV Fluids: 1000 Blood Products: none Estimated Blood Loss: 50 Urinary Output: 500 Blood Pressure Systolic: 104 Blood Pressure Diastolic: 56 Pulse Rate: 88 Respiratory Rate: 20 O2 Sat by Pulse Oximetry: 99 Temperature (Fahrenheit): 97.8 Pain Score (1-10): 1 Nausea: No Vomiting: No Complications none Patient Status: reacts, patent, extubated, none Hydration Status: adequate Beto Ricks MD Jul 29, 2020 09:47
--- NOTE | 2020-07-29 10:40 | NUR ---
CASE MANAGEMENT:REVIEW 35 YR OLD FEMALE HERE FOR ELECTIVE SURGERY SI: BACK PAIN AND RT LEG RADICULOPATHY 97.5 81 18 109/74 99% ON RA IS: TO SURGERY FOR: HEMILAMINOTOMY,FORAMINOTOMY,MICRODISCECTOMY IV ANCEF Q8HRS IV DECADRON Q6HRS IV MAG SULFATE Q1HRS X2 BAGS : TO MED/SURG 3 EAST POST-OP
--- NOTE | 2020-07-29 11:00 | NUR ---
NURSE NOTES: PATIENT RECEIVED FROM PACU ON BED. AOX4. HEAD TO TOE ASSESSMENT DONE. SURGICAL SITE C/D/I. CMS WNL. O2 ON VIA NC. RR EVEN UNLABORED.NO RESPIRATORY DISTRESS NOTED. SCDS ON. BEDSIDE REPORT RECEIVED. PATIENT ORIENTED TO ROOM VIA IRON MOLDER HELPER. ACKNOWLEDGED UNDERSTANDING. BED IN LOW AND LOCKED POSITION. CALL LIGHT WITHIN REACH. BED ALARM ON.
[2020-07-29] MEDS: NS w/KCl 20mEq 1000ml 1,000 ML IV SCH ×3 (12:45→23:36)
--- NOTE | 2020-07-29 14:41 | NUR ---
P.T Note: P.T evaluation completed and tx initiated per spinal protocol. Please refer to P.T evaluation for current functional status.
[2020-07-29] MEDS: ceFAZolin sod 1 GM in D5W 55 ML IV SCH ×2 (15:59→22:31)
--- NOTE | 2020-07-29 16:14 | Operative Note - Dictated ---
DATE OF OPERATION: 07/29/2020 SURGEON: Chester Tavarez MD, Orthopaedic Spine Surgeon. MEDIA TRAFFIC MANAGER SURGEON: TIERRA Gonzalez ANESTHESIA: General endotracheal anesthesia. PREOPERATIVE DIAGNOSES: 1. Intractable back pain. 2. Intractable leg pain. 3. Worsening radiculopathy. 4. Weakness. 5. Herniated nucleus pulposus, L4-L5 and L5-S1. 6. Neural foraminal stenosis, L4-L5 and L5-S1. POSTOPERATIVE DIAGNOSES: 1. Intractable back pain. 2. Intractable leg pain. 3. Worsening radiculopathy. 4. Weakness. 5. Herniated nucleus pulposus, L4-L5 and L5-S1. 6. Neural foraminal stenosis, L4-L5 and L5-S1. PROCEDURES PERFORMED: 1. Right-sided L4-L5 and L5-S1 microdiscectomy. 2. L4-L5 and L5-S1 hemilaminotomy, foraminotomy, and medial facetectomy. 3. L4-L5 and L5-S1 neural foraminotomy through a transpedicular intraforaminal approach. 4. Use of intraoperative microscope. 5. Supervision and interpretation of intraoperative fluoroscopy. 6. Supervision and interpretation of somatosensory-evoked potential and free-running EMG monitoring. ESTIMATED BLOOD LOSS: Less than 100 mL. COMPLICATIONS: None. INDICATIONS FOR THE PROCEDURE: The patient presents for intractable back pain and radiculopathy. The patient tried and failed a prolonged course of conservative management, including but not limited to chiropractic therapy, physical therapy, nonsteroidal anti-inflammatory drugs, medication, ice packs as well as epidural injection. Despite these therapies, the patient still developed recalcitrant pain and elected for definitive management in the form of right-sided L4-L5 and L5-S1 microdiscectomy; L4-L5 and L5-S1 hemilaminotomy, foraminotomy, and medial facetectomy; and L4-L5 and L5-S1 neural foraminotomy through a transpedicular intraforaminal approach. CONSENT: We had a long discussion with the patient regarding definitive surgical treatment options. The patient's MRI demonstrated herniated nucleus pulposus at L4-L5 and L5-S1 and neural foraminal stenosis at L4-L5 and L5-S1, and as a result, I felt the patient would benefit from the discectomy as well as neural foraminotomy at this level. We had a long discussion with the patient regarding the risks, alternatives, and benefits of surgery. Our description of the risks included a discussion in person as well as a signed consent, which detailed all pertinent risks and the procedure itself. Briefly, our discussion included but was not limited to infection, bleeding, pseudarthrosis, spinal cord injury, neurovascular injury, dural tear, CSF leak, neuropathy, paralysis, permanent weakness/drop foot, paresthesias blindness, palsy, and weakness. The patient understood there may be a need for revision surgery or additional procedures. Approach-related complications including dysphonia, dysphagia, blindness, permanent vocal cord and neural injury, hematoma, swallowing and breathing difficulty. Medical complications including liver, kidney, shock, and cardiopulmonary failure. Anesthesia complications including , swelling. Damage to the musculature, larynx (voice injury or loss), esophagus (throat), trachea, blood vessels and muscles (muscular sprain), and lungs (pneumothorax) during this surgical procedure. Injury to deeper structures may be temporary or permanent. The patient understood these and elected to proceed. A written and verbal consent was given. We discussed the pros and cons of all the alternatives. We discussed the uncertainties associated with the decision. Afterwards, I assessed the patient's understanding and explored their preferences. All questions were answered and no guarantees were given. Medical clearance was obtained prior to surgery. INTRAOPERATIVE FINDINGS: L4-L5; at L4-L5, the disc itself was soft and well hydrated. On careful retraction of the thecal sac, there was an obvious central and right-sided neural foraminal pressure, which was attributed to a nucleus pulposus fragment, which herniated through and around a tear in the posterior longitudinal ligament. This tear was probed with a Microsect 1-B and 2-B curettes. The torn edges appeared acute and deep going. They were not scarred in to a significant extent. It did not appear to be a chronic degenerative tear. It appeared to be an acute tear approximately 10 to 15 degrees cephalad to caudad in its orientation in relation to this part of the posterior longitudinal ligament. The disc itself was resected with a combination of arthroscopic and 1.5 mm pituitaries. The disc itself was soft and did not appear calcified or degenerative. The disc appeared well hydrated and it was mobile and able to be resected from the standpoint of nucleus pulposus fragment, which was causing the encroachment. L5-S1; at L5-S1, I noted there to be some pressure on the thecal sac and neural foramina. I attributed this to pressure from posterior nuclear fragment. This was confirmed after mobilization with [place] 4 and nerve root retractor, and we visualized a large piece of herniated nucleus pulposus, which had torn centrally and a second tear noted on posterior longitudinal ligament on the right side. These tears were approximately 5 to 10 degrees vertical in a [id number] direction. These tears were mobilized with a Microsect 1-B and 2-B curettes. The torn edges of the posterior longitudinal ligament appeared fresh and did not appear to be a degenerative process. The disc itself was resected with a combination of arthroscopic and pituitaries 1.5 mm and 2 mm until all the loose fragment was resected from the disc itself. The nuclear tissue itself appeared soft and did not appear desiccated to a significant component. The disc itself appeared to be appropriate in terms of height. After resection of the disc, I next turned my attention to the foraminotomy. The foraminotomies at L4-L5 and L5-S1 were performed similarly with a combination of [place] 1 and Kerrison 2 rongeurs. DESCRIPTION OF PROCEDURE: Under the benefit of general endotracheal anesthesia and with the assistance of the entire operative team, the patient was moved from the [facility] onto the operative table in the prone position on a Addy frame. The head was secured and positioned appropriately. Bilateral arms were secured with Gel Pads and foam, and all bony prominences were padded. The bilateral lower extremity SCD and MISHEL hose were placed for DVT prophylaxis. A surgical timeout was called, which corroborated our planned procedure. Preoperative antibiotics were administered within 30 minutes of the incision for prophylaxis. Decadron was given for preoperative steroids. Using lateral radiography, the operative levels were delineated. An incision was marked based on our interpretation of lateral radiography and afterwards the body was prepped and draped in the usual sterile manner. The family was notified that we were ready to commence surgery and were called in the waiting room hourly for updates. An incision was based on our lateral fluoroscopic image to center the incision at the L5-S1 interspace. The wound was prepped and draped in the usual sterile fashion. Using a scalpel, a midline incision was taken down through the skin and subcutaneous tissues until the overlying hemilaminae of L4-L5 and L5-S1 were visualized. Next, using meticulous hemostasis, hemilamotomies were dissected and retractors were placed. Using a Hever dental, we confirmed placement at the L4-L5 and L5-S1 interspace. We next turned our attention to our decompression. A standard hemilaminotomy, foraminotomy, and medial facetectomy was performed at each level in standard fashion using a Midas-Alphonso type AM8 drill bit, straight and angled curettage, and [place] 4 rongeurs until the lateral thecal sac margin and traversing nerve root was visualized. All remainders of the ligamentum flavum and lateral bony margins were resected in total with angled curettage and [place] 4 rongeurs until the lateral thecal sac margin and traversing nerve root was visualized and decompressed. We next turned our attention toward our L4-L5 and L5-S1 microdiscectomy on the right side. A [place] 4 was used to gently mobilize the thecal sac medially and this was held retracted with a bayonetted nerve root retractor. It was at this point that we noted a large broad-based disc protrusion with encroachment dorsally on the thecal sac neural foraminal contents. A bayonet and nerve root retractor was then placed carefully to retract the thecal sac and a discectomy was performed using a combination of a long-handled 15 blade scalpel, downgoing and straight pituitaries, and downgoing curettage. Afterwards, the disc space was irrigated twice with 20 mL of antibiotic-impregnated saline. All loose and free-floating disc fragments were carefully resected with a narrow pituitary. Having been satisfied with our decompression after our discectomy of all neural elements, we next turned our attention to our neural foraminoplasty/foraminotomy. This was performed through a transpedicular intraforaminal approach using an access probe followed by a neuro-check device, which confirmed ventral placement of our nerve root. Once we confirmed we were safe, we next turned our attention towards placement of our size 10 file under direct microscopic visualization and under lateral fluoroscopy. Using pre- and post-reciprocation imaging, we were able to visualize our direct decompression given the reciprocation allowed for re-creation of the neural foraminal arch at L4-L5 and L5-S1. Afterwards, hemostasis was obtained with 60 mL of antibiotic-impregnated saline followed by FloSeal and Gelfoam. After sponge and needle count were found to be correct, we next turned our attention to closure. Closure consisted of 1-0 Vicryl in standard interrupted fashion. Zosyn was placed deep to the fascia and superficial to the fascia for antibiotic prophylaxis. Skin closure was performed with 2-0 Vicryl in interrupted fashion followed by a running Monocryl for the skin. Final dressings consisted of Dermabond for the superficial skin, Telfa, and Tegaderm. The patient tolerated the procedure well. The patient was extubated after the conclusion of surgery without incident. We discussed the findings of the surgery with the family upon completion of the case. At this point, the patient will be transferred to the spine floor for further observation. Chester Tavarez M.D. DR: ALEJANDRA JOB#: [id number] CC:
--- NOTE | 2020-07-29 16:48 | Diagnostic Imaging Report ---
INDICATION: Pain, intraoperative TECHNIQUE: Intraoperative imaging Fluoroscopy time: 3.7 seconds Total dose: 0.58835 mGym2 Total number of images: One COMPARISON: 03/06/2020 FINDINGS: Single intraoperative image demonstrates a surgical tool projected posterior to what is presumably the L5-S1 disc. IMPRESSION: Intraoperative imaging, as described
[2020-07-29] MEDS: Docusate 100mg cap ORAL SCH (17:49)
--- NOTE | 2020-07-29 19:10 | NUR ---
NURSE NOTES: PATIENT REMAINS STABLE. PAIN CONTROLLED. TOLERATING PO.
--- NOTE | 2020-07-29 19:11 | NUR ---
NURSE HAND-OFF: Important Events on Shift:NONE Patient Status: STABLE Diet: REGULAR Pending Orders: NONE Pending Results/Labs:NONE Pending MD notification: N/A Latest Vital Signs: Temperature 98.1 , Pulse 94 , B/P 111 /67 , Respiratory Rate 18 , O2 SAT 99 RA. Vital Sign Comment: STABLE Latest [place] Fall Score: 35 Fall Risk: Medium Risk Safety Measures: Call light Within Reach, Bed Alarm , Side Rails Side Rails x2, Bed position Low and Locked. Fall Precautions: Yellow Gown Door Sign Patient Fall Education Report given to TOREY AGUILAR RN.
--- NOTE | 2020-07-29 19:52 | NUR ---
NURSE NOTES: patient alert and oriented, assisted to the bathroom without difficulty, tolerated well. denies pain or discomfort, followed up with RT for IS.
[2020-07-30] VITALS: BP 106/69
[2020-07-30 04:00] VITALS: BP 104/69
[2020-07-30] MEDS: ceFAZolin sod 1 GM in D5W 55 ML IV SCH (06:31)
--- NOTE | 2020-07-30 07:04 | NUR ---
NURSE HAND-OFF: Important Events on Shift:[] patient needs only minimal assist getting out of bed, no carito or discomfort. potential discharge once cleared by md Patient Status: [] stable Diet: [] regular Pending Orders: [] none Pending Results/Labs:[] none Pending MD notification:[] none Latest Vital Signs: Temperature 98.6 , Pulse 100 , B/P 104 /69 , Respiratory Rate 18 , O2 SAT 98 , Nasal Cannula, O2 Flow Rate 2.0 . Vital Sign Comment: [] Latest [place] Fall Score: 35 Fall Risk: Medium Risk Safety Measures: Call light Within Reach, Bed Alarm , Side Rails Side Rails x2, Bed position Low and Locked. Fall Precautions: Yellow Gown Door Sign Patient Fall Education Report given to []. Addendum: 07/30/20 at 0738 by Viky Gonzalez RN report given to sha strickland.
--- NOTE | 2020-07-30 07:30 | NUR ---
NURSE NOTES: Pt lying in bed w/bed in lowest position and call light within reach. Pt A&Ox4, VSS, and in no apparent distress. IV site intact/asymptomatic w/IVF infusing and surgical wound C/D/I. Pt scheduled to go home today. Will continue to monitor.
--- NOTE | 2020-07-30 07:46 | NUR ---
CASE MANAGEMENT:REVIEW 07/30/20 SI: POD#1 BACK PAIN AND RT LEG RADICULOPATHY S/P HEMILAMINOTOMY,FORAMINOTOMY,MICRODISCECTOMY 98.6 100 18 104/69 98% ON RA IS: IV ANCEF Q8HRS IVF+KCL@100/HR IV MORPHINE Q4HRS PRN : MED/SURG STATUS DCP: FROM HOME PLAN: PHYSICAL THERAPY
[2020-07-30 08:00] VITALS: BP 118/73
[2020-07-30] MEDS: Docusate 100mg cap ORAL SCH (08:22)
--- NOTE | 2020-07-30 10:31 | 48 Hour Post Anesthesia Eval ---
Post Anesthesia Evaluation Procedure: L4-L5, L5-S1 laminotomy with decompression Date of Evaluation: Jul 30, 2020 Time of Evaluation: 10:30 Blood Pressure Systolic: 128 0: 76 Pulse Rate: 86 Respiratory Rate: 22 Temperature (Fahrenheit): 97.8 O2 Sat by Pulse Oximetry: 98 Airway: patent Nausea: No Vomiting: No Pain Intensity: 3 Hydration Status: adequate Cardiopulmonary Status: stable Mental Status/LOC: patient returned to baseline Follow-up Care/Observations: n/a Post-Anesthesia Complications: none Follow-up care needed: ready to discharge Beto Ricks MD Jul 30, 2020 10:31
[2020-07-30 12:00] VITALS: BP 102/64
--- NOTE | 2020-07-30 13:44 | NUR ---
NURSE NOTES: Reviewed D/C paperwork w/pt; provided [facility] rx; and removed IV site/ID wristband. Escorted pt downstairs via w/c to sister's car w/all belongings accounted for.
--- NOTE | 2020-07-31 08:11 | Discharge Summary ---
Discharge Summary Hospital Course Date of Admission Jul 29, 2020 at 05:17 Date of Discharge Jul 30, 2020 at 13:35 Admitting Diagnosis HPI Cecilia Last is a 35 year old female who was admitted on Jul 29, 2020 at 05:17 for Herniated Nucleus Pulposus,Pain,Radiculopathy Discharge Medications Medication Profile: No Active Prescriptions or Reported Meds Discharge Condition Upon Discharge: stable Discharge Vital Signs Last Vital Signs Date Time Temp Pulse Resp B/P (MAP) Pulse Ox O2 Delivery O2 Flow Rate FiO2 07/30/20 12:00 98.7 93 16 102/64 (77) 97 07/30/20 09:00 Room Air 07/29/20 11:33 2.0 Discharge Disposition Patient was discharged home Alyson Baker NP Jul 31, 2020 08:11
== END 2020-07-30 13:35 | disposition home or self-care (01) | DRG 520 ==
LOC: SDSOVERFLO 05:17 → 3E 10:49
PROC: 0SB40ZZ Excision of Lumbosacral Disc, Open Approach (ICD-10-PCS; principal; 2020-07-29 07:00)
PROC: 01NB0ZZ Release Lumbar Nerve, Open Approach (ICD-10-PCS; principal; 2020-07-29 07:00)
PROC: 0SB20ZZ Excision of Lumbar Vertebral Disc, Open Approach (ICD-10-PCS; principal; 2020-07-29 07:00)
DX: M51.16 Intervertebral disc disorders with radiculopathy, lumbar region (principal); M48.061 Spinal stenosis, lumbar region without neurogenic claudication; M48.07 Spinal stenosis, lumbosacral region; E66.9 Obesity, unspecified; Z68.30 Body mass index [BMI] 30.0-30.9, adult
CPT/HCPCS: 36415; 72020; 76000; 81025; 86850; 86900; 86901; 87081; 94003; 94150; J2180; J2250; J2405; U0002